=== PATIENT | female | born 1965 | race Caucasian/White ===

== ENCOUNTER 2017-11-16 12:24 | Emergency (ER) | payer SELFPAY ==
[~2017-11-16] VITALS: Ht 160 cm; Wt 85.0 kg
[~2017-11-16 12:24] MED LIST: DICL75 PO; METH750T2 PO
[2017-11-16 12:44] VITALS: BP 109/64; PULSE 78; RESP 20; TEMP 97.4; O2SAT 95
[2017-11-16] MEDS ORDERED: BENI40TA7 PO (12:59)
[2017-11-16] MEDS ORDERED: PHEN-556 PO (12:59)
[2017-11-16] MEDS ORDERED: CYCL10TA PO (13:54)
[2017-11-16] MEDS ORDERED: PRED10PA2 PO (13:54)
--- NOTE | 2017-11-16 13:55 | PD ---
HPI . Leg pain Chief Complaint: Musculoskeletal Complaint Time Seen by Provider: 13:11 Travel History International Travel<30 days: No Contact w/Intl Traveler<30days: No Traveled to known affect area: No History of Present Illness HPI Patient presents with chief complaint of acute left leg pain. Onset was 10 AM. Pain is rated 10/10 and is exacerbated by standing and walking. It is unrelieved by ibuprofen. Patient reports a previous history of sciatica and states that the pain that she has now is similar to her sciatica. She denies any injury. She does not have any worrisome neurological symptoms such as fever or perineal anesthesia. PFSH Past Medical History Anxiety: Yes (PANIC ATTACKS) Cancer: No Cardiovascular Problems: Yes High Cholesterol: Yes Diabetes: No Diminished Hearing: No Endocrine: No Genitourinary: No Hypertension: Yes Musculoskeletal: Yes (SCIATICA) Neurologic: Yes (SCIATICA) Psychiatric: Yes Respiratory: No Integumentary: Yes (HISTORY OF MRSA) PNEUMOCCOCAL Vaccine (Year): 2009 ?: Not Menopausal: Yes Tubal Ligation: Yes Past Surgical History Abdominal Surgery: Yes (CHOLECYSTECTOMY) Cardiac Surgery: Yes (DEVIATED SEPTUM) Cholecystectomy: Yes Gynecologic Surgery: Yes (NOVASURE UTERINE ABLATION, TUBAL LIGATION) Hysterectomy: Yes Other Surgery: Yes (vaginal mesh placed) Social History Alcohol Use: No Tobacco Use: No Substance Use: No Allergies-Medications (Allergen,Severity, Reaction): Coded Allergies: morphine (Verified Allergy, Unknown, Hives, 11/16/17) Reported Meds & Prescriptions Reported Meds & Active Scripts Active Reported Lomaira (Phentermine HCl) 8 Mg Tab 37.5 Mg PO DAILY Benicar Hct (Olmesartan-Hydrochlorothiazide) 40-25 mg Tab 1 Tab PO DAILY Review of Systems Except as stated in HPI: all other systems reviewed are Neg Physical Exam Narrative GENERAL: Awake and alert and in no acute distress. SKIN: Warm and dry. HEAD: Normocephalic/atraumatic. EYES: Pupils are equal. Extraocular movements are intact. NECK: Normal range of motion. CARDIOVASCULAR: Regular rate and rhythm. RESPIRATORY: Nonlabored respirations. MUSCULOSKELETAL: There is no swelling or discoloration of her left leg. Skin has normal color and temperature. She reports pain in her left leg on straight leg raise at about 60. NEUROLOGICAL: Nonfocal. PSYCHIATRIC: Appropriate mood and affect. Data Data Last Documented VS Vital Signs Date Time Temp Pulse Resp B/P (MAP) Pulse Ox O2 Delivery O2 Flow Rate FiO2 11/16/17 12:44 97.4 78 20 109/64 (79) 95 MDM Medical Decision Making Medical Screen Exam Complete: Yes Emergency Medical Condition: Yes Differential Diagnosis Differential diagnosis of leg pain includes but is not limited to lumbar radiculopathy, arthritis, myalgias, DVT. Narrative Course Patient presents with left leg pain. She reports a history of sciatica and states that her pain is similar. She does not have any concerning historical or physical exam findings. She will be discharged home with prescriptions for prednisone and Flexeril. Diagnosis Primary Impression: Sciatica Qualified Codes: M54.32 - Sciatica, left side Patient Instructions: General Instructions, Sciatica (DC) Med/Other Pt SpecificInfo: Prescription(s) given Scripts Cyclobenzaprine (Flexeril) 10 Mg Tab 10 MG PO TID for Muscle Spasm, #90 TAB 0 Refills Prov: Arpita Singletary MD 11/16/17 Prednisone (48) 10 mg tab Dose Pack (Prednisone (48) 10 mg tab Dose Pack) 10 Mg Dspk 10 MG PO DIRECTED for Inflammation, #1 DSPK 0 Refills Prov: Arpita Singletary MD 11/16/17 Disposition: 01 DISCHARGE HOME Condition: Stable Arpita Singletary MD November 16, 2017 13:55
[2017-11-16] MEDS ORDERED: predniSONE 20 MG TAB PO ONE (14:00)
[2017-11-16] MEDS ORDERED: CYCLOBENZAPRINE HCL 10 MG TAB PO ONE (14:00)
== END 2017-11-16 14:10 | disposition home or self-care (01) ==
LOC: NEPD 12:24
DX: M54.32 Sciatica, left side (principal)
CPT/HCPCS: 99283; J7512

== ENCOUNTER 2017-11-23 18:01 | Observation (INO) | payer SELFPAY ==
[~2017-11-23] VITALS: Ht 162.6 cm; Wt 89.3 kg
[~2017-11-23 18:01] MED LIST changes: +BENI40TA7 PO; +CYCL10TA PO; -DICL75 PO; -METH750T2 PO; +PHEN-556 PO; +PRED10PA2 PO
[2017-11-23 18:19] VITALS: BP 160/90; PULSE 92; RESP 16; TEMP 98.1; O2SAT 99
[2017-11-23 18:25] VITALS: O2SAT 99
[2017-11-23] MEDS ORDERED: HYDR-4107 PO (18:30)
[2017-11-23] MEDS ORDERED: SODIUM CHLORIDE 0.9% FLUSH 10 ML FLUSH IVF PRN (18:30)
[2017-11-23 18:38] LABS: BILIRUBIN, URINE NEG (NEG); BLOOD, URINE NEG (NEG); GLUCOSE,URINE NEG (NEG); KETONE, URINE NEG (NEG); NITRITE,URINE NEG (NEG); PH, URINE 5.5 (5.0-8.5); URINE COLOR YELLOW (YELLW/STRAW); URINE LEUKOCYTE ESTERASE NEG (NEG)
[2017-11-23 18:45] LABS: RBC, URINE 0-2 /hpf (0-3); SQUAMOUS EPITHELIAL CELL URINE 0-5 /hpf (0-5); WBC, URINE 0-2 /hpf (0-5)
[2017-11-23 18:54] LABS: BASOPHIL # 0.1 TH/MM3 (0-0.2); BASOPHIL % 0.9 % (0.0-2.0); EOSINOPHIL # 0.1 TH/MM3 (0-0.4); EOSINOPHIL % 0.9 % (0.0-4.0); HEMATOCRIT 41.3 % (35.0-46.0); HEMOGLOBIN 13.8 GM/DL (11.6-15.3); LYMPHOCYTE # 1.9 TH/MM3 (1.0-4.8); MEAN CELL VOLUME 86.8 FL (80.0-100.0); MEAN CORPUSCULAR HEMOGLOBIN 28.9 PG (27.0-34.0); MEAN CORPUSCULAR HGB CONC 33.3 % (32.0-36.0); MEAN PLATELET VOLUME 8.2 FL (7.0-11.0); MONO % 7.9 % (0.0-8.0); MONOCYTE # 0.6 TH/MM3 (0-0.9); NEUT % 65.3 % (16.0-70.0); PLATELET COUNT 281 TH/MM3 (150-450); RED BLOOD COUNT 4.76 MIL/MM3 (4.00-5.30); RED CELL DISTRIBUTION WIDTH 11.7 % (11.6-17.2); WHITE BLOOD COUNT 7.7 TH/MM3 (4.0-11.0)
--- NOTE | 2017-11-23 18:55 | RADRPT ---
EXAM DATE/TIME: 11/23/2017 18:26 [facility] COMPARISON: No previous studies available for comparison. INDICATIONS : Shortness of breath, left side weakness. MEDICAL HISTORY : None. SURGICAL HISTORY : None. ENCOUNTER: Initial ACUITY: 1 day PAIN SCORE: 3/10 LOCATION: Bilateral chest FINDINGS: A single view of the chest demonstrates the lungs to be symmetrically aerated without evidence of mas s, infiltrate or effusion. The cardiomediastinal contours are unremarkable. Osseous structures are intact. CONCLUSION: No acute disease. Cameron Ruffin MD on November 23, 2017 at 18:53 Board Certified Radiologist. This report was verified electronically.
--- NOTE | 2017-11-23 18:56 | RADRPT ---
EXAM DATE/TIME: 11/23/2017 18:33 [facility] COMPARISON: No previous studies available for comparison. INDICATIONS : Left arm weakness. Right facial weakness. Cephalgia. Evaluate for cerebrovascular accident. RADIATION DOSE: 48.58 CTDIvol (mGy) MEDICAL HISTORY : Hypertension. SURGICAL HISTORY : Cholecystectomy. Tubal ligation.Hysterectomy. ENCOUNTER: Initial ACUITY: 1 day PAIN SCALE: 2/10 LOCATION: cranial TECHNIQUE: Multiple contiguous axial images were obtained of the head. Using automated exposure control and adj ustment of the mA and/or kV according to patient size, radiation dose was kept as low as reasonably a chievable to obtain optimal diagnostic quality images. DICOM format image data is available electro nically for review and comparison. FINDINGS: CEREBRUM: The ventricles are normal for age. No evidence of midline shift, mass lesion, hemorrhage or acute in farction. No extra-axial fluid collections are seen. POSTERIOR FOSSA: The cerebellum and brainstem are intact. The 4th ventricle is midline. The cerebellopontine angle i s unremarkable. EXTRACRANIAL: The visualized portion of the orbits is intact. SKULL: The calvaria is intact. No evidence of skull fracture. CONCLUSION: Normal examination. Cameron Ruffin MD on November 23, 2017 at 18:54 Board Certified Radiologist. This report was verified electronically.
[2017-11-23 19:01] LABS: CHLORIDE 104 MEQ/L (98-107); SODIUM (NA) 138 MEQ/L (136-145)
[2017-11-23 19:04] LABS: ALBUMIN 3.8 GM/DL (3.4-5.0); BICARBONATE 29.9 MEQ/L (21.0-32.0); CALCIUM 9.1 MG/DL (8.5-10.1); GLUCOSE,RANDOM 99 MG/DL (74-106)
[2017-11-23 19:05] LABS: BLOOD UREA NITROGEN 14 MG/DL (7-18)
[2017-11-23 19:07] LABS: ALT (GPT) 34 U/L (10-53); AST (GOT) 20 U/L (15-37); CREATININE 0.98 MG/DL (0.50-1.00); GLOMERULAR FILTRATION RATE 60 ML/MIN (>89)
[2017-11-23 19:09] LABS: TOTAL BILIRUBIN ADULT 0.5 MG/DL (0.2-1.0); TOTAL PROTEIN 7.9 GM/DL (6.4-8.2)
[2017-11-23 19:10] LABS: ALKALINE PHOSPHATASE 110 U/L (45-117)
--- NOTE | 2017-11-23 19:18 | PD ---
HPI Chief Complaint: Neuro Symptoms/ Deficits Time Seen by Provider: 18:19 Travel History International Travel<30 days: No Contact w/Intl Traveler<30days: No Traveled to known affect area: No History of Present Illness HPI Is a 52-year-old woman presents to the emergency department complaining of left- sided weakness. She states that she felt fine this morning, went to work, started to develop funny feeling, like her blood pressure is elevated, little bit of flushed feeling, some headache, and some fullness and heaviness and weakness in her left arm, and some paresthesias and tingling in the right side of her face. She normally takes her blood pressure medication at night. She has been out of it for couple days. She got her medication filled and took around noon today. She also did take a phentermine this morning, which she states she takes every other day or so for weight loss. Denies ever having had similar symptoms like this in the past. Is otherwise been well and healthy. Has been told that she had lupus about a year or so ago when she developed hand swelling was hospitalized for several days, multiple blood work, and is referred to a specialist. She is not on medication now. History Past Medical History Narrative Medical Hypertension Sciatica, on chronic [place] Previous diagnosis of lupus Tetanus Vaccination: > 5 Years Influenza Vaccination: Yes PNEUMOCCOCAL Vaccine (Year): 2009 Menopausal: Yes Social History Alcohol Use: No Tobacco Use: No ( A TEEN) Allergies-Medications (Allergen,Severity, Reaction): Coded Allergies: morphine (Verified Allergy, Unknown, Hives, 11/23/17) Reported Meds & Prescriptions Reported Meds & Active Scripts Active Flexeril (Cyclobenzaprine HCl) 10 Mg Tab 10 Mg PO TID Reported Hydrocodone-Acetaminophen 5-300 Mg Tab Unknown Dose PO DIRECTED PRN Lomaira (Phentermine HCl) 8 Mg Tab 37.5 Mg PO DAILY Benicar Hct (Olmesartan-Hydrochlorothiazide) 40-25 mg Tab 1 Tab PO DAILY Review of Systems Except as stated in HPI: all other systems reviewed are Neg Physical Exam Narrative GENERAL: Well-appearing 52-year-old woman, anxious, nontoxic. SKIN: Focused skin assessment warm/dry. HEAD: Atraumatic. Normocephalic. EYES: Pupils equal and round. No scleral icterus. No injection or drainage. ENT: No nasal bleeding or discharge. Mucous membranes pink and moist. NECK: Trachea midline. No JVD. CARDIOVASCULAR: Regular rate and rhythm. No murmur appreciated. RESPIRATORY: No accessory muscle use. Clear to auscultation. Breath sounds equal bilaterally. GASTROINTESTINAL: Abdomen soft, non-tender, nondistended. Hepatic and splenic margins not palpable. MUSCULOSKELETAL: No obvious deformities. No clubbing. No cyanosis. No edema. NEUROLOGICAL: Awake and alert. No obvious facial asymmetry. She has some subjective paresthesias and decreased sensation in the right V2 V3. Cranial nerves are otherwise intact. 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 No obvious pronator drift. Sensation is subjectively different in the left arm as well. She has drift in both legs with no obvious asymmetry or sensory changes. Normal heel to [place]. Normal finger to nose. PSYCHIATRIC: Appropriate mood and affect; insight and judgment normal. Data Data Last Documented VS Vital Signs Date Time Temp Pulse Resp B/P (MAP) Pulse Ox O2 Delivery O2 Flow Rate FiO2 11/23/17 18:31 (113) 11/23/17 18:25 99 Room Air 11/23/17 18:19 98.1 92 16 Orders Orders Electrocardiogram (11/23/17 18:19) Prothrombin Time / Inr (Pt) (11/23/17 18:19) Act Partial Throm Time (Ptt) (11/23/17 18:19) Complete Blood Count With Diff (11/23/17 18:19) Comprehensive Metabolic Panel (11/23/17 18:19) Drug Screen, Random Urine (11/23/17 18:19) Urinalysis - C+S If Indicated (11/23/17 18:19) Ct Brain W/O Iv Contrast(Rout) (11/23/17 18:19) Chest, Single Ap (11/23/17 18:19) Ecg Monitoring (11/23/17 18:19) Iv Access Insert/Monitor (11/23/17 18:19) Oximetry (11/23/17 18:19) Blood Glucose (11/23/17 18:19) Sodium Chloride 0.9% Flush (Ns Flush) (11/23/17 18:30) Admit Order (Ed Use Only) (11/23/17 ) C-Reactive Protein (Crp) (11/23/17 18:45) Labs Laboratory Tests Test 11/23/17 18:15 11/23/17 18:25 11/23/17 18:45 11/23/17 19:35 Urine Color YELLOW Urine Turbidity CLEAR Urine pH 5.5 Urine Specific [place] LESS/EQUAL 1.005 Urine Protein NEG mg/dL Urine Glucose (UA) NEG mg/dL Urine Ketones NEG mg/dL Urine Occult Blood NEG Urine Nitrite NEG Urine Bilirubin NEG Urine Urobilinogen 0.2 MG/DL Urine Leukocyte Esterase NEG Urine RBC 0-2 /hpf Urine WBC 0-2 /hpf Urine Squamous Epithelial Cells 0-5 /hpf Urine Bacteria NONE /hpf Microscopic Urinalysis Comment CULT NOT INDICATED Urine Opiates Screen NEG Urine Barbiturates Screen NEG Urine Amphetamines Screen NEG Urine Benzodiazepines Screen NEG Urine Cocaine Screen NEG Urine Cannabinoids Screen NEG White Blood Count 7.7 TH/MM3 Red Blood Count 4.76 MIL/MM3 Hemoglobin 13.8 GM/DL Hematocrit 41.3 % Mean Corpuscular Volume 86.8 FL Mean Corpuscular Hemoglobin 28.9 PG Mean Corpuscular Hemoglobin Concent 33.3 % Red Cell Distribution Width 11.7 % Platelet Count 281 TH/MM3 Mean Platelet Volume 8.2 FL Neutrophils (%) (Auto) 65.3 % Lymphocytes (%) (Auto) 25.0 % Monocytes (%) (Auto) 7.9 % Eosinophils (%) (Auto) 0.9 % Basophils (%) (Auto) 0.9 % Neutrophils # (Auto) 5.0 TH/MM3 Lymphocytes # (Auto) 1.9 TH/MM3 Monocytes # (Auto) 0.6 TH/MM3 Eosinophils # (Auto) 0.1 TH/MM3 Basophils # (Auto) 0.1 TH/MM3 CBC Comment DIFF FINAL Differential Comment Blood Urea Nitrogen 14 MG/DL Creatinine 0.98 MG/DL Random Glucose 99 MG/DL Total Protein 7.9 GM/DL Albumin 3.8 GM/DL Calcium Level 9.1 MG/DL Alkaline Phosphatase 110 U/L Aspartate Amino Transf (AST/SGOT) 20 U/L Alanine Aminotransferase (ALT/SGPT) 34 U/L Total Bilirubin 0.5 MG/DL Sodium Level 138 MEQ/L Potassium Level 3.4 MEQ/L Chloride Level 104 MEQ/L Carbon Dioxide Level 29.9 MEQ/L Anion Gap 4 MEQ/L Estimat Glomerular Filtration Rate 60 ML/MIN MDM Medical Decision Making Medical Screen Exam Complete: Yes Emergency Medical Condition: Yes Interpretation(s) My review of EKG: Normal sinus rhythm at a rate of 78, normal axis, normal intervals, no definite evidence of acute ischemia. INITIAL: CBC is unremarkable. CMP is unremarkable. Urine drug screen is negative UA is normal Head CT is negative. Chest x-ray is negative. Differential Diagnosis Stroke, cerebritis, seizure, anxiety, dissection, clot, other Narrative Course Medical decision making 52-year-old woman, reported history of lupus, presents with strokelike symptoms , elevated blood pressure, I do not think this is a hypertensive emergency. Higher risk for stroke with her history of lupus. Overall I do not think these are likely strokelike symptoms. Onset was about 9 AM this morning. Will recommend observation for MRI and further evaluation. Diagnosis Primary Impression: Left arm weakness Admitting Information Admitting Physician Requests: Observation Michael Hernandez MD November 23, 2017 19:18
[2017-11-23 19:40] VITALS: BP 128/81; PULSE 82; RESP 16; O2SAT 98
[2017-11-23] MEDS ORDERED: MAGNESIUM HYDROXIDE SUSP 30 ML CUP PO PRN (19:45)
[2017-11-23] MEDS ORDERED: BISACODYL 10 MG SUPP RECTAL PRN (19:45)
[2017-11-23] MEDS ORDERED: ASPIRIN EC 325 MG TABEC PO ONE (19:45)
[2017-11-23] MEDS ORDERED: METOCLOPRAMIDE HCL 10 MG/2 ML VIAL IV PUSH PRN (19:45)
[2017-11-23] MEDS ORDERED: LACTULOSE SYRUP 20 GM/30 ML CUP PO PRN (19:45)
[2017-11-23] MEDS ORDERED: SODIUM CHLORIDE 0.9% FLUSH 10 ML FLUSH IV FLUSH PRN (19:45)
[2017-11-23] MEDS ORDERED: ACETAMINOPHEN 325 MG TAB PO PRN (19:45)
[2017-11-23] MEDS ORDERED: SENNOSIDES 8.6 MG TAB PO PRN (19:45)
[2017-11-23 20:19] LABS: PROTHROMBIN TIME - PATIENT 10.2 SEC (9.8-11.6)
[2017-11-23] MEDS ORDERED: PRAVASTATIN SOD 40 MG TAB PO SCH (21:00)
[2017-11-23] MEDS: SODIUM CHLORIDE 0.9% FLUSH 10 ML FLUSH IV FLUSH SCH (21:00)
[2017-11-23] MEDS: DOCUSATE SODIUM 50 MG/SENNA 8.6 MG TAB PO SCH (21:35)
[2017-11-23] MEDS: SODIUM CHLOR 0.9% 1000 ML INJ 1,000 ML IV SCH (21:36)
[2017-11-23 21:45] VITALS: BP 120/77; PULSE 77; RESP 16; O2SAT 98
[2017-11-23 23:30] VITALS: BP 119/73; PULSE 68; RESP 16; O2SAT 98
[2017-11-24] VITALS (7 sets, daily range): BP systolic 116–159; BP diastolic 67–88; PULSE 68–75; RESP 20; TEMP 96.6–97.5; O2SAT 96–100
[2017-11-24] MEDS: SODIUM CHLOR 0.9% 1000 ML INJ 1,000 ML IV SCH (05:58)
[2017-11-24 07:27] LABS: AUTOMATED NEUTROPHIL # 4.8 TH/MM3 (1.8-7.7); BASOPHIL % 0.7 % (0.0-2.0); CHLORIDE 106 MEQ/L (98-107); EOSINOPHIL % 0.6 % (0.0-4.0); HEMATOCRIT 41.3 % (35.0-46.0); HEMOGLOBIN 14.5 GM/DL (11.6-15.3); LYMPH % 25.5 % (9.0-44.0); LYMPHOCYTE # 1.8 TH/MM3 (1.0-4.8); MEAN CELL VOLUME 86.3 FL (80.0-100.0); MEAN CORPUSCULAR HEMOGLOBIN 30.3 PG (27.0-34.0); MEAN CORPUSCULAR HGB CONC 35.1 % (32.0-36.0); MONO % 6.2 % (0.0-8.0); MONOCYTE # 0.4 TH/MM3 (0-0.9); PLATELET COUNT 283 TH/MM3 (150-450); RED BLOOD COUNT 4.78 MIL/MM3 (4.00-5.30); RED CELL DISTRIBUTION WIDTH 12.2 % (11.6-17.2); SODIUM (NA) 140 MEQ/L (136-145)
[2017-11-24 07:34] LABS: ALBUMIN 3.5 GM/DL (3.4-5.0); BICARBONATE 29.2 MEQ/L (21.0-32.0); CALCIUM 8.9 MG/DL (8.5-10.1); GLUCOSE,RANDOM 104 MG/DL (74-106)
[2017-11-24 07:35] LABS: BLOOD UREA NITROGEN 11 MG/DL (7-18)
[2017-11-24 07:37] LABS: ALT (GPT) 32 U/L (10-53); AST (GOT) 18 U/L (15-37)
[2017-11-24 07:38] LABS: CREATININE 0.85 MG/DL (0.50-1.00); GLOMERULAR FILTRATION RATE 70 ML/MIN (>89)
[2017-11-24 07:39] LABS: TOTAL BILIRUBIN ADULT 0.6 MG/DL (0.2-1.0); TOTAL PROTEIN 7.7 GM/DL (6.4-8.2)
[2017-11-24 07:40] LABS: ALKALINE PHOSPHATASE 107 U/L (45-117)
[2017-11-24 07:42] LABS: TROPONIN I LESS THAN 0.02 NG/ML (0.02-0.05)
[2017-11-24] MEDS: DOCUSATE SODIUM 50 MG/SENNA 8.6 MG TAB PO SCH (07:47)
[2017-11-24] MEDS: SODIUM CHLORIDE 0.9% FLUSH 10 ML FLUSH IV FLUSH SCH (07:48)
[2017-11-24] MEDS ORDERED: ASPIRIN EC 81 MG TABEC PO SCH (09:00)
[2017-11-24] MEDS ORDERED: NON-FORMULARY DRUG (Olmesartan-Hydrochlorothiazide (Benicar Hct) 1 TAB) PO SCH (10:30)
[2017-11-24] MEDS ORDERED: LOSARTAN 50 MG TAB PO SCH (11:00)
[2017-11-24] MEDS ORDERED: HYDROCHLOROTHIAZIDE 25 MG TAB PO SCH (11:00)
[2017-11-24 12:34] LABS: CHOLESTEROL 181 MG/DL (120-200); TRIGLYCERIDES 131 MG/DL (42-150)
--- NOTE | 2017-11-24 12:34 | HHI.HP ---
[facility] Matt Cash M.D. Admission Diagnosis Left arm weakness, rule out CVA, rule out lupus flare Diagnoses: Chief Complaint: Left arm weakness and facial numbness Travel History International Travel<30 Days: No Contact w/Intl Traveler <30 Da: No Traveled to Known Affected Are: No History of Present Illness This patient is a 52-year-old female with a history of hypertension. She has been off of her medications for about a month and has come to the hospital because she complained of left-sided upper extremity weakness and right facial numbness. She "felt funny "like her blood pressure was elevated and she was flushing. She did not check her blood pressure. She did get her prescription filled and took her medication. When she came to the hospital and blood pressure has become quite well controlled. Initial CT of the head was unremarkable. MRIs are pending. Patient reports a history of anxiety. She also has been taking hydrocodone for sciatica as well as Flexeril. She reports a history of lupus but has not been on any medications for this and says she had "positive antibiotics ". Renal function and complete blood profile are normal. On exam patient does not appear to have any focal deficits. Review of Systems Constitutional: DENIES: Diaphoretic episodes, Fatigue, Fever, Weight gain, Weight loss, Chills, Dizziness, Change in appetite, Night Sweats Endocrine: DENIES: Abnorml menstrual pattern, Heat/cold intolerance, Polydipsia , Polyuria, Polyphagia Eyes: DENIES: Blurred vision, Diplopia, Eye inflammation, Eye pain, Vision loss , Photosensitivity, Double Vision Ears, nose, mouth, throat: DENIES: Tinnitus, Hearing loss, Vertigo, Nasal discharge, Oral lesions, Throat pain, Hoarseness, Ear Pain, Running Nose, Epistaxis, Sinus Pain, Toothache, Odynophagia Respiratory: DENIES: Apneas, Cough, Snoring, Wheezing, Hemoptysis, Sputum production, Shortness of breath Cardiovascular: DENIES: Chest pain, Palpitations, Syncope, Dyspnea on Exertion , PND, Lower Extremity Edema, Orthopnea, Claudication Gastrointestinal: DENIES: Abdominal pain, Black stools, Bloody stools, Constipation, Diarrhea, Nausea, Vomiting, Difficulty Swallowing, Anorexia Genitourinary: DENIES: Abnormal vaginal bleeding, Dysmenorrhea, Dyspareunia, Sexual dysfunction, Urinary frequency, Urinary incontinence, Urgency, Hematuria , Dysuria, Nocturia, Vaginal discharge Musculoskeletal: DENIES: Joint pain, Muscle aches, Stiffness, Joint Swelling, Back pain, Neck pain Integumentary: DENIES: Abnormal pigmentation, Pruritus, Rash, Nail changes, Breast masses, Breast skin changes, Nipple discharge Hematologic/lymphatic: DENIES: Bruising, Lymphadenopathy Immunologic/allergic: DENIES: Eczema, Urticaria Neurologic: COMPLAINS OF: Headache, Paresthesias, DENIES: Abnormal gait, Localized weakness, Seizures, Speech Problems, Tremor, Poor Balance Psychiatric: DENIES: Anxiety, Confusion, Mood changes, Depression, Hallucinations, Agitation, Suicidal Ideation, Homicidal Ideation, Delusions Except as stated in HPI: all other systems reviewed are Neg Past Family Social History Past Medical History Hypertension Anxiety Sciatica "Lupus " Past Surgical History Cholecystectomy Hysterectomy Reported Medications Reviewed in the EMR, Ran out of Benicar Allergies: Coded Allergies: morphine (Verified Allergy, Unknown, Hives, 11/23/17) Active Ordered Medications Reviewed in the EMR Family History Mother had congestive heart failure and at 54 Father from Parkinson's and dementia Brother had end-stage renal disease and vascular Social History Patient reports no tobacco or alcohol dependency, she is employed and lives with her family Physical Exam Vital Signs Vital Signs Date Time Temp Pulse Resp B/P (MAP) Pulse Ox O2 Delivery O2 Flow Rate FiO2 11/24/17 11:35 71 11/24/17 11:00 96.6 68 20 134/80 (98) 100 11/24/17 07:50 97.5 72 20 121/70 (87) 98 11/24/17 04:05 68 11/24/17 04:00 97.1 75 20 116/67 (83) 96 11/24/17 00:00 96.6 71 20 159/85 (109) 97 11/23/17 23:30 68 16 119/73 (88) 98 Room Air 11/23/17 23:00 76 16 Room Air 11/23/17 22:35 16 11/23/17 21:45 77 16 120/77 (91) 98 Room Air 11/23/17 19:40 82 16 128/81 (97) 98 Room Air 11/23/17 19:05 78 16 Room Air 11/23/17 18:31 (113) 11/23/17 18:25 99 Room Air 11/23/17 18:19 Room Air 11/23/17 18:19 98.1 92 16 160/90 (113) 99 Room Air Physical Exam GENERAL: This is a well-nourished, well-developed patient, in no apparent distress. SKIN: No rashes, ecchymoses or lesions. Cool and dry. HEAD: Atraumatic. Normocephalic. No temporal or scalp tenderness. EYES: Pupils equal round and reactive. Extraocular motions intact. No scleral icterus. No injection or drainage. ENT: Nose without bleeding, purulent drainage or septal hematoma. Throat without erythema, tonsillar hypertrophy or exudate. Uvula midline. Airway patent. NECK: Trachea midline. No JVD or lymphadenopathy. Supple, nontender, no meningeal signs. CARDIOVASCULAR: Regular rate and rhythm without murmurs, gallops, or rubs. RESPIRATORY: Clear to auscultation. Breath sounds equal bilaterally. No wheezes , rales, or rhonchi. GASTROINTESTINAL: Abdomen soft, non-tender, nondistended. No hepato-splenomegaly , or palpable masses. No guarding. MUSCULOSKELETAL: Extremities without clubbing, cyanosis, or edema. No joint tenderness, effusion, or edema noted. No calf tenderness. Negative Homans sign bilaterally. NEUROLOGICAL: Awake and alert. Cranial nerves II through XII intact. Motor and sensory grossly within normal limits. Five out of 5 muscle strength in all muscle groups. Normal speech. Laboratory Laboratory Tests Test 11/23/17 18:15 11/23/17 18:25 11/23/17 18:45 11/23/17 19:35 Erythrocyte Sedimentation Rate 17 Urine Color YELLOW Urine Turbidity CLEAR Urine pH 5.5 Urine Specific [place] LESS/EQUAL 1.005 Urine Protein NEG Urine Glucose (UA) NEG Urine Ketones NEG Urine Occult Blood NEG Urine Nitrite NEG Urine Bilirubin NEG Urine Urobilinogen 0.2 Urine Leukocyte Esterase NEG Urine RBC 0-2 Urine WBC 0-2 Urine Squamous Epithelial Cells 0-5 Urine Bacteria NONE Microscopic Urinalysis Comment CULT NOT INDICATED Urine Opiates Screen NEG Urine Barbiturates Screen NEG Urine Amphetamines Screen NEG Urine Benzodiazepines Screen NEG Urine Cocaine Screen NEG Urine Cannabinoids Screen NEG White Blood Count 7.7 Red Blood Count 4.76 Hemoglobin 13.8 Hematocrit 41.3 Mean Corpuscular Volume 86.8 Mean Corpuscular Hemoglobin 28.9 Mean Corpuscular Hemoglobin Concent 33.3 Red Cell Distribution Width 11.7 Platelet Count 281 Mean Platelet Volume 8.2 Neutrophils (%) (Auto) 65.3 Lymphocytes (%) (Auto) 25.0 Monocytes (%) (Auto) 7.9 Eosinophils (%) (Auto) 0.9 Basophils (%) (Auto) 0.9 Neutrophils # (Auto) 5.0 Lymphocytes # (Auto) 1.9 Monocytes # (Auto) 0.6 Eosinophils # (Auto) 0.1 Basophils # (Auto) 0.1 CBC Comment DIFF FINAL Differential Comment Blood Urea Nitrogen 14 Creatinine 0.98 Random Glucose 99 Total Protein 7.9 Albumin 3.8 Calcium Level 9.1 Alkaline Phosphatase 110 Aspartate Amino Transf (AST/SGOT) 20 Alanine Aminotransferase (ALT/SGPT) 34 Total Bilirubin 0.5 Sodium Level 138 Potassium Level 3.4 Chloride Level 104 Carbon Dioxide Level 29.9 Anion Gap 4 Estimat Glomerular Filtration Rate 60 C-Reactive Protein 1.00 Prothrombin Time 10.2 Prothromb Time International Ratio 1.0 Activated Partial Thromboplast Time 26.7 Test 11/24/17 00:46 11/24/17 06:33 Troponin I LESS THAN 0.02 LESS THAN 0.02 White Blood Count 7.0 Red Blood Count 4.78 Hemoglobin 14.5 Hematocrit 41.3 Mean Corpuscular Volume 86.3 Mean Corpuscular Hemoglobin 30.3 Mean Corpuscular Hemoglobin Concent 35.1 Red Cell Distribution Width 12.2 Platelet Count 283 Mean Platelet Volume 9.0 Neutrophils (%) (Auto) 67.0 Lymphocytes (%) (Auto) 25.5 Monocytes (%) (Auto) 6.2 Eosinophils (%) (Auto) 0.6 Basophils (%) (Auto) 0.7 Neutrophils # (Auto) 4.8 Lymphocytes # (Auto) 1.8 Monocytes # (Auto) 0.4 Eosinophils # (Auto) 0.0 Basophils # (Auto) 0.0 CBC Comment DIFF FINAL Differential Comment Blood Urea Nitrogen 11 Creatinine 0.85 Random Glucose 104 Total Protein 7.7 Albumin 3.5 Calcium Level 8.9 Alkaline Phosphatase 107 Aspartate Amino Transf (AST/SGOT) 18 Alanine Aminotransferase (ALT/SGPT) 32 Total Bilirubin 0.6 Sodium Level 140 Potassium Level 3.8 Chloride Level 106 Carbon Dioxide Level 29.2 Anion Gap 5 Estimat Glomerular Filtration Rate 70 Result Diagram: 11/24/1763211/24/17632 Imaging Last Impressions Head CT 11/23/171818 Signed Impressions: Service Date/Time: Thursday, November 23, 2017 18:33 - CONCLUSION: Normal examination. Cameron Ruffin MD Chest X-Ray 11/23/171818 Signed Impressions: Service Date/Time: Thursday, November 23, 2017 18:26 - CONCLUSION: No acute disease. Cameron Ruffin MD Caprini VTE Risk Assessment Caprini VTE Risk Assessment: No/Low Risk (score <= 1) Caprini Risk Assessment Model Point Value = 1 Point Value = 2 Point Value = 3 Point Value = 5 Age 41-60 Minor surgery BMI > 25 kg/m2 Swollen legs Varicose veins or History of unexplained or recurrent spontaneous Oral contraceptives or hormone replacement Sepsis (< 1 month) Serious lung disease, including pneumonia (< 1 month) Abnormal pulmonary function Acute myocardial infarction Congestive heart failure (< 1 month) History of inflammatory bowel disease Medical patient at bed rest Age 61-74 Arthroscopic surgery Major open surgery (> 45 min) Laparoscopic surgery (> 45 min) Malignancy Confined to bed (> 72 hours) Immobilizing plaster cast Central venous access Age >= 75 History of VTE Family history of VTE Factor V Leiden Prothrombin [id number] Lupus anticoagulant Anticardiolipin antibodies Elevated serum homocysteine Heparin-induced thrombocytopenia Other congenital or acquired thrombophilia Stroke (< 1 month) Elective arthroplasty Hip, pelvis, or leg fracture Acute spinal cord injury (< 1 month) Prophylaxis Regimen Total Risk Factor Score Risk Level Prophylaxis Regimen 0-1 Low Early ambulation 2 Moderate Order ONE of the following: *Sequential Compression Device (SCD) *Heparin 5000 units SQ BID 3-4 Higher Order ONE of the following medications: *Heparin 5000 units SQ TID *Enoxaparin/Lovenox 40 mg SQ daily (WT < 150 kg, CrCl > 30 mL/min) *Enoxaparin/Lovenox 30 mg SQ daily (WT < 150 kg, CrCl > 10-29 mL/min) *Enoxaparin/Lovenox 30 mg SQ BID (WT < 150 kg, CrCl > 30 mL/min) AND/OR *Sequential Compression Device (SCD) 5 or more Highest Order ONE of the following medications: *Heparin 5000 units SQ TID (Preferred with Epidurals) *Enoxaparin/Lovenox 40 mg SQ daily (WT < 150 kg, CrCl > 30 mL/min) *Enoxaparin/Lovenox 30 mg SQ daily (WT < 150 kg, CrCl > 10-29 mL/min) *Enoxaparin/Lovenox 30 mg SQ BID (WT < 150 kg, CrCl > 30 mL/min) AND *Sequential Compression Device (SCD) Assessment and Plan Problem List: (1) Neurological complaint ICD Code: R29.90 - Unspecified symptoms and signs involving the nervous system Plan: Etiology unclear. Not typical for a TIA or stroke. We will follow-up imaging. Likely discharge home if unremarkable (2) HTN (hypertension) ICD Code: I10 - Essential (primary) hypertension Plan: Continue with home medications and patient admonished to continue taking those meds as prescribed (3) Anxiety ICD Code: F41.9 - Anxiety disorder, unspecified Plan: Patient counseled to follow-up as an outpatient with her primary care provider or with psychology services Code Status Full code Discussed Condition With Patient, ALFREDO WALSH, neurology Yamilet Nunez MD November 24, 2017 12:34
[2017-11-24] MEDS ORDERED: WALKER WHEELS/F1 MIS (12:35)
[2017-11-24 12:36] LABS: CHOLESTEROL/ HDL RATIO 3.73 RATIO; HDL CHOLESTEROL 48.4 MG/DL (40.0-60.0); LDL CHOLESTEROL 106 MG/DL (0-99)
--- NOTE | 2017-11-24 13:51 | EKG ---
Date Performed: 11/23/2017 Time Performed: 18:30:06 PTAGE: 52 years EKG: Sinus rhythm NONSPECIFIC T-WAVE ABNORMALITY BORDERLINE ECG NO PREVIOUS TRACING DOCTOR: Sudhir Gauthier Interpretating Date/Time 11/24/2017 13:48:05
--- NOTE | 2017-11-24 14:33 | RADRPT ---
EXAM DATE/TIME: 11/24/2017 14:29 [facility] COMPARISON: No previous studies available for comparison. INDICATIONS : Cephalgia. MEDICAL HISTORY : Hypertension. Hypercholesterolemia. SURGICAL HISTORY : Cholecystectomy. Hysterectomy. Tubal ligation. ENCOUNTER: Initial ACUITY: 1 day PAIN SCORE: 0/10 LOCATION: cranial Please note a normal MRA of the brain does not entirely exclude the possibility of a small aneurysm, nor the possibility of distal intracranial vessel disease. TECHNIQUE: 3D time of flight MRA was performed. Source images, multiplanar STS MIP, and 3D volume MIP reconstru ctions were reviewed. FINDINGS: Anterior circulation: Distal intracranial internal carotid arteries are patent with flow extending to the middle and anteri or cerebral arteries. There is no evidence for aneurysm, vessel truncation or stenosis, and no eviden ce for vascular malformation. Posterior circulation: Symmetric distal vertebral arteries with flow extending to basilar artery. origin of the right [employer]DELING [employer]. There is no evidence for aneurysm, vessel truncation or stenosis, and no evidence for vascular malformation. CONCLUSION: 1. Unremarkable MRA examination of the brain. Andrea Villanueva MD on November 24, 2017 at 14:29 Board Certified Radiologist. This report was verified electronically.
--- NOTE | 2017-11-24 14:49 | RADRPT ---
EXAM DATE/TIME: 11/24/2017 14:29 [facility] COMPARISON: No previous studies available for comparison. INDICATIONS : Cephalgia. MEDICAL HISTORY : Hypertension. Hypercholesterolemia. SURGICAL HISTORY : Hysterectomy. Cholecystectomy. Tubal ligation. ENCOUNTER: Initial ACUITY: 1 day PAIN SCORE: 0/10 LOCATION: cranial TECHNIQUE: Multiplanar, multisequence MRI of the brain was performed without contrast. FINDINGS: CEREBRUM: Mild diffuse cerebral volume loss. The ventricles are normal for age. No evidence of midline shift, mass lesion, hemorrhage or acute infarction. No extraaxial fluid collections are seen. The pituitar y gland and suprasellar cistern are normal in configuration. WHITE MATTER: Minimal periventricular and deep white matter T2 prolongation. POSTERIOR FOSSA: The cerebellum and brainstem are intact. The 4th ventricle is midline. The cerebellopontine angle is unremarkable. The cerebellar tonsils are normal in position. DIFFUSION IMAGING: No focal areas of restricted diffusion are seen. No evidence of acute infarction. EXTRACRANIAL: The visualized portions of the orbits and paranasal sinuses are unremarkable. CONCLUSION: 1. Senescent changes without acute abnormality. Specifically, no acute infarction, mass or hemorrhage . Andrea Villanueva MD on November 24, 2017 at 14:46 Board Certified Radiologist. This report was verified electronically.
--- NOTE | 2017-11-24 15:08 | HHI.DCPOC ---
Discharge Care Plan Diagnosis: (1) Anxiety (2) HTN (hypertension) (3) Neurological complaint Goals to Promote Your Health * To prevent worsening of your condition and complications * To maintain your health at the optimal level Directions to Meet Your Goals Take your medications as prescribed Follow your dietary instruction Follow activity as directed Keep your appointments as scheduled Take your immunizations and boosters as scheduled If your symptoms worsen call your PCP, if no PCP go to Urgent Care Center or Emergency Room Smoking is Dangerous to Your Health. Avoid second hand smoke Call the 24-hour hour crisis hotline for domestic abuse at Yamilet Nunez MD November 24, 2017 15:08
[2017-11-24] MEDS ORDERED: PANTOPRAZOLE SOD 40 MG DELAYED RELEASE TAB PO SCH (16:00)
[2017-11-25 11:07] LABS: HEMOGLOBIN A1C 5.6 % (4.3-6.0)
== END 2017-11-24 16:51 | disposition home or self-care (01) ==
LOC: PHED 18:01 → PHEDA 19:42 → PH3A 23:48
PROVIDERS: ADMIT Hospitalist; ATTEND Hospitalist
DX: R29.90 Unspecified symptoms and signs involving the nervous system (principal); I10 Essential (primary) hypertension; F41.9 Anxiety disorder, unspecified; R51 Headache; R53.1 Weakness; R20.0 Anesthesia of skin; M54.30 Sciatica, unspecified side
CPT/HCPCS: 70450; 70544; 70551; 71045; 80053; 80061; 80307; 81001; 83036; 84484; 85025; 85610; 85652; 85730; 86140; 93005; 96361; 96374; 97162; 99285; G0378; G8987; G8988; J2765; J7030

== ENCOUNTER 2017-12-10 17:00 | Emergency (ER) | payer SELFPAY ==
[~2017-12-10] VITALS: Ht 162.6 cm; Wt 90.9 kg
[~2017-12-10 17:00] MED LIST changes: +HYDR-4107 PO; -PRED10PA2 PO; +WALKER WHEELS/F1 MIS
[2017-12-10 17:04] VITALS: BP 128/75; PULSE 90; RESP 16; TEMP 97.6; O2SAT 97
[2017-12-10] MEDS ORDERED: HYDR-3288 PO (17:08)
[2017-12-10] MEDS ORDERED: BACT800T5 PO (18:30)
[2017-12-10] MEDS ORDERED: CEPH-460 PO (18:30)
--- NOTE | 2017-12-10 18:30 | PD ---
HPI Chief Complaint: Skin Problem Time Seen by Provider: 18:07 Travel History International Travel<30 days: No Contact w/Intl Traveler<30days: No Traveled to known affect area: No History of Present Illness HPI This is a 52-year-old female here with concern of MRSA infection on her left arm and abdomen. She reports she noticed to small pustules on her left upper extremity and abdomen 3 days ago. Since then areas have become increasingly more painful and red. No drainage from the site. No fever chills. Symptom severity is mild to moderate. No aggravating or relieving factors. PFSH Past Medical History Hx Anticoagulant Therapy: No Arthritis: Yes Autoimmune Disease: Yes (karen) Anxiety: Yes (PANIC ATTACKS) Depression: No Heart Rhythm Problems: No Cancer: No Cardiovascular Problems: Yes (HTN) High Cholesterol: Yes Chest Pain: No Congestive Heart Failure: No Cerebrovascular Accident: No Diabetes: No Diminished Hearing: No Endocrine: No Genitourinary: No Headaches: Yes Hypertension: Yes Immune Disorder: Yes Musculoskeletal: Yes (SCIATICA) Neurologic: Yes (SCIATICA) Psychiatric: Yes Reproductive: No Respiratory: No Integumentary: Yes (HISTORY OF MRSA) Migraines: No Seizures: No Thyroid Disease: No PNEUMOCCOCAL Vaccine (Year): 2009 ?: Not Menopausal: Yes Tubal Ligation: Yes Past Surgical History Abdominal Surgery: Yes (CHOLECYSTECTOMY) Cardiac Surgery: Yes (DEVIATED SEPTUM) Cholecystectomy: Yes Ear Surgery: No Endocrine Surgery: No Eye Surgery: No Gynecologic Surgery: Yes (NOVASURE UTERINE ABLATION, TUBAL LIGATION) Hysterectomy: Yes Oral Surgery: No Other Surgery: Yes (vaginal mesh placed) Social History Alcohol Use: No Tobacco Use: No ( A TEEN) Substance Use: No Allergies-Medications (Allergen,Severity, Reaction): Coded Allergies: morphine (Verified Allergy, Unknown, Hives, 12/10/17) Reported Meds & Prescriptions Reported Meds & Active Scripts Active Reported [place] (Hydrocodone-Acetaminophen) 7.5-325 mg Tab 1 Tab PO Q6H PRN Lomaira (Phentermine HCl) 8 Mg Tab 37.5 Mg PO DAILY Benicar Hct (Olmesartan-Hydrochlorothiazide) 40-25 mg Tab 1 Tab PO DAILY Review of Systems Except as stated in HPI: all other systems reviewed are Neg General / Constitutional: No: Fever Physical Exam Narrative GENERAL: Alert and well-appearing 52-year-old female SKIN: Warm and dry. A single pustule noted to the left upper extremity with 3 cm area of surrounding erythema. The area is not indurated or fluctuant. No lymphangitis. Another small pustule to the anterior abdomen without fluctuance , induration or surrounding cellulitis. HEAD: Normocephalic. EYES: No injection or drainage. NECK: Supple CARDIOVASCULAR: Regular rate and rhythm without murmurs, gallops, or rubs. RESPIRATORY: Breath sounds equal bilaterally. No accessory muscle use. GASTROINTESTINAL: Abdomen soft, non-tender, nondistended. MUSCULOSKELETAL: No cyanosis, or edema. BACK: Nontender without obvious deformity. No CVA tenderness. Data Data Last Documented VS Vital Signs Date Time Temp Pulse Resp B/P (MAP) Pulse Ox O2 Delivery O2 Flow Rate FiO2 12/10/17 17:04 97.6 90 16 128/75 (92) 97 MDM Medical Decision Making Medical Screen Exam Complete: Yes Emergency Medical Condition: Yes Differential Diagnosis Abscess, cellulitis, lymphangitis Narrative Course 52-year-old female here with cellulitis. She is nontoxic appearing. She will be treated with Bactrim and Keflex. Diagnosis Primary Impression: Cellulitis Qualified Codes: L03.90 - Cellulitis, unspecified Referrals: Primary Care Physician Additional Instructions: Medication as directed. Follow-up with your primary doctor. Scripts Cephalexin (Keflex) 500 Mg Cap 500 MG PO Q6H for Infection for 10 Days, #40 CAP 0 Refills Prov: Noemí Franklin 12/10/17 Sulfamethoxazole-Trimethoprim (Bactrim DS) 800-160 Mg Tab 1 TAB PO BID for Infection, #20 TAB 0 Refills Prov: Noemí Franklin 12/10/17 Disposition: 01 DISCHARGE HOME Condition: Stable Noemí Franklin Dec 10, 2017 18:30
== END 2017-12-10 18:51 | disposition home or self-care (01) ==
LOC: PHEFT 17:00
DX: L03.90 Cellulitis, unspecified (principal); E78.00 Pure hypercholesterolemia, unspecified; F41.0 Panic disorder [episodic paroxysmal anxiety]; I10 Essential (primary) hypertension; Z86.14 Personal history of Methicillin resistant Staphylococcus aureus infection
CPT/HCPCS: 99283

== ENCOUNTER 2017-12-13 17:45 | Emergency (ER) | payer SELFPAY ==
[~2017-12-13] VITALS: Ht 162.6 cm; Wt 89.5 kg
[~2017-12-13 17:45] MED LIST changes: +BACT800T5 PO; +CEPH-460 PO; -CYCL10TA PO; +HYDR-3288 PO; -HYDR-4107 PO; -WALKER WHEELS/F1 MIS
[2017-12-13 17:49] VITALS: BP 132/67; PULSE 85; RESP 16; TEMP 98.2; O2SAT 99
[2017-12-13] MEDS ORDERED: CLINDAMYCIN 150 MG CAP PO ONE (18:15)
[2017-12-13] MEDS ORDERED: CLIN150C14 PO (18:17)
--- NOTE | 2017-12-13 18:17 | PD ---
HPI Chief Complaint: Skin Problem Time Seen by Provider: 18:10 Travel History International Travel<30 days: No Contact w/Intl Traveler<30days: No Traveled to known affect area: No History of Present Illness HPI 52-year-old female complaint a painful lesion left arm. Patient was seen in emergency room 3 days ago for folliculitis on the left arm and abdomen wall. Patient was given prescription for Bactrim DS and Keflex. Patient states that she filled the prescription for Bactrim but not the Keflex. Patient states that she has increasing redness swelling and pain of the left upper arm. Patient states the lesion on the abdomen got better and resolved completely. Patient states that the pain state burning pain sharp pain localized to left upper arm. Patient denies any pain radiation. Patient denies any fever chills. On a scale of 1-10 the pain is an 8. PFSH Past Medical History Hx Anticoagulant Therapy: No Arthritis: Yes Autoimmune Disease: Yes (karen) Anxiety: Yes (PANIC ATTACKS) Depression: No Heart Rhythm Problems: No Cancer: No Cardiovascular Problems: Yes (htn on meds) High Cholesterol: Yes Chest Pain: No Congestive Heart Failure: No Cerebrovascular Accident: No Diabetes: No Diminished Hearing: No Endocrine: No Genitourinary: No Headaches: Yes Hypertension: Yes Immune Disorder: Yes Musculoskeletal: Yes (SCIATICA) Neurologic: Yes (SCIATICA) Psychiatric: Yes Reproductive: No Respiratory: No Integumentary: Yes (HISTORY OF MRSA) Migraines: No Seizures: No Thyroid Disease: No Tetanus Vaccination: < 5 Years Influenza Vaccination: No PNEUMOCCOCAL Vaccine (Year): 2009 ?: Not Menopausal: Yes Tubal Ligation: Yes Past Surgical History Abdominal Surgery: Yes (CHOLECYSTECTOMY) Cardiac Surgery: Yes (DEVIATED SEPTUM) Cholecystectomy: Yes Ear Surgery: No Endocrine Surgery: No Eye Surgery: No Gynecologic Surgery: Yes (NOVASURE UTERINE ABLATION, TUBAL LIGATION) Hysterectomy: Yes Neurologic Surgery: No Oral Surgery: No Other Surgery: Yes (vaginal mesh placed, right groin skin infection MRSA) Social History Alcohol Use: Yes (occas.) Tobacco Use: No ( A TEEN) Substance Use: No (hx of smoked 'weed') Allergies-Medications (Allergen,Severity, Reaction): Coded Allergies: morphine (Verified Allergy, Unknown, Hives, 12/13/17) Reported Meds & Prescriptions Reported Meds & Active Scripts Active Keflex (Cephalexin) 500 Mg Cap 500 Mg PO Q6H 10 Days Bactrim DS (Sulfamethoxazole-Trimethoprim) 800-160 Mg Tab 1 Tab PO BID Reported Lomaira (Phentermine HCl) 8 Mg Tab 37.5 Mg PO DAILY Benicar Hct (Olmesartan-Hydrochlorothiazide) 40-25 mg Tab 1 Tab PO DAILY Review of Systems General / Constitutional: No: Fever Eyes: No: Visual changes HENT: No: Headaches Cardiovascular: No: Chest Pain or Discomfort Respiratory: No: Shortness of Breath Gastrointestinal: No: Abdominal Pain Genitourinary: No: Dysuria Musculoskeletal: Positive: Pain Skin: No Rash Neurologic: No: Weakness Psychiatric: No: Depression Endocrine: No: Polydipsia Hematologic/Lymphatic: No: Easy Bruising Physical Exam Narrative GENERAL: Well-nourished, well-developed patient. SKIN: Focused skin assessment warm/dry. HEAD: Normocephalic. EYES: No scleral icterus. No injection or drainage. NECK: Supple, trachea midline. No JVD or lymphadenopathy. CARDIOVASCULAR: Regular rate and rhythm without murmurs, gallops, or rubs. RESPIRATORY: Breath sounds equal bilaterally. No accessory muscle use. GASTROINTESTINAL: Abdomen soft, non-tender, nondistended. MUSCULOSKELETAL: No cyanosis, or edema. BACK: Nontender without obvious deformity. No CVA tenderness. Patient has an area of redness swelling tenderness medial aspect left upper arm. Small pustule papular lesion in the middle of the redness area. No induration. No discharge. Data Data Last Documented VS Vital Signs Date Time Temp Pulse Resp B/P (MAP) Pulse Ox O2 Delivery O2 Flow Rate FiO2 12/13/17 17:52 16 12/13/17 17:49 98.2 85 132/67 (88) 99 Orders Orders Clindamycin (Cleocin) (12/13/17 18:15) MDM Medical Decision Making Medical Screen Exam Complete: Yes Emergency Medical Condition: Yes Differential Diagnosis Differential diagnosis including folliculitis, cellulitis, abscess. Narrative Course 52-year-old female with increase in redness swelling tenderness on the infected lesion left upper arm. Patient is on Bactrim DS day #3. Clindamycin 300 mg p.o. given. Diagnosis Primary Impression: Left arm cellulitis Patient Instructions: General Instructions Additional Instructions: Polysporin ointment with Band-Aid daily. Continue Bactrim DS as directed. Clindamycin as directed. Apply moist warm compresses to the area.. Follow-up with personal physician. Return if increasing redness or swelling. Med/Other Pt SpecificInfo: Prescription(s) given Scripts Clindamycin (Clindamycin) 150 Mg Cap 300 MG PO QID for Infection, #80 CAP 0 Refills Prov: Ruben Reeder MD 12/13/17 Disposition: 01 DISCHARGE HOME Condition: Stable Ruben Reeder MD Dec 13, 2017 18:17
== END 2017-12-13 18:29 | disposition home or self-care (01) ==
LOC: PHEFT 17:45
DX: L03.114 Cellulitis of left upper limb (principal); M19.90 Unspecified osteoarthritis, unspecified site; E78.00 Pure hypercholesterolemia, unspecified; F41.9 Anxiety disorder, unspecified; I10 Essential (primary) hypertension; Z86.14 Personal history of Methicillin resistant Staphylococcus aureus infection
CPT/HCPCS: 99283